=== PATIENT | male | born 2005 | race Caucasian/White ===

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

== ENCOUNTER 2025-02-24 19:46 | Emergency (ER) | payer BC, SELFPAY ==
--- NOTE | ~2025-02-24 | XR_ITS ---
EXAM: XR_[id number]_CR DATE: 02/24/2025 20:03 HISTORY: back pain . COMPARISON: None available. FINDINGS: Craniocervical association and atlantoaxial joint are aligned. No prevertebral soft tissue swelling. Vertebral bodies are aligned. Vertebral body heights are maintained. Normal disc spaces. N ormal facets and posterior elements. IMPRESSION: Unremarkable cervical spine radiograph findings. Reviewed, dictated and finalized at location K.
--- NOTE | ~2025-02-24 | XR_ITS ---
EXAM: XR thoracic spine 3V DATE: 02/24/2025 20:03 HISTORY: back pain . COMPARISON: None available. FINDINGS: Mild scoliosis. Vertebral body alignment intact. Vertebral body heights preserved. No disc space narrowing. No traumatic malalignment or fracture. Visualized lung parenchyma is clear. IMPRESSION: Mild scoliosis. Otherwise unremarkable thoracic spine radiograph findings. Reviewed, dictated and finalized at location K. IMPRESSION: Mild scoliosis. Otherwise unremarkable thoracic spine radiograph [facility].
[2025-02-24 19:46] VITALS: BP 145/84; PULSE 97; RESP 18; TEMP 36.8; O2SAT 99
--- OUTSIDE RECORDS SUMMARY | 2025-02-24 19:48 | XMS_ITS | Clinical Summary ---
Author Organization [facility] [employer] Address [address] [place] [address] Care Team Providers Care Back Wedger Name Role Phone Unavailable Primary Care Provider Unavailabl e Source Comments [facility] [employer],non-owned Affiliates and Associated Physician Practices is amultiple site organization consisting of ambulatory clinics and hospital sitesin [place], [place], [place] and [place]. This disclosure is being madepursuant to the Care Everywhere program and may not contain all information available regarding this patient. 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 Gender Identity Not on file Sexual Orientation Not on file Last Filed Vital Signs Vital Sign Reading Time Taken Comments Blood Pressure 112/70 08/25/2017 6:01 PM OPTICAL GOODS DRILL OPERATOR Pulse 112 08/25/2017 6:01 PM OPTICAL GOODS DRILL OPERATOR Temperature 36.9 C (98.4 F) 08/25/2017 6:01 PM OPTICAL GOODS DRILL OPERATOR Respiratory Rate - - Oxygen Saturation 99% 08/25/2017 6:01 PM OPTICAL GOODS DRILL OPERATOR Inhaled Oxygen Concentration - - Weight 85.3 kg (188 lb) 08/25/2017 6:01 PM OPTICAL GOODS DRILL OPERATOR Height 162.6 cm (5' 4) 08/25/2017 6:01 PM OPTICAL GOODS DRILL OPERATOR Body Mass Index 32.27 08/25/2017 6:01 PM OPTICAL GOODS DRILL OPERATOR Plan of Treatment Health Maintenance Due Date Last Done Comments HIV SCREENING 2019 HPV VACCINE (1 - Male 3-dose series) 2019 MENINGOCOCCAL (Group B) VACC INE SHARED DECISION-MAKING (1 of 2 - Standard) 2020 HEPATITIS C SCREENING 04/21/2022 DTAP/TDAP/TD VACCINES (1 - Tdap) 2023 HEPATITIS B VACCINE (1 of 3 - 19+ 3-dose series) 2023 COVID-19 VACCINE (1 - 2023-2 5 season) 2024 DEPRESSION SCREENING 09/21/2024 INFLUENZA VACCINE (Season Ended) 2025 ZOSTER VACCINE (1 of 2) 2054 HIB VACCINE Aged Out No longer eligi ble based on patient's age to complete this topic MENINGOCOCCAL GROUPS A/C/Y/W VACCINE Aged Out No longer eligible b ased on patient's age to complete this topic PNEUMOCOCCAL VACCINE Aged Out No long er eligible based on patient's age to complete this topic Insurance [facility]
--- NOTE | 2025-02-24 21:47 | PC.NURSE ---
Pt presents to ED c/o worsening R upper back pain. Per pt was lifting boxes at work when it started a couple days ago. no bruising noted. VS WNL
--- OUTSIDE RECORDS SUMMARY | 2025-02-24 22:43 | XMS_ITS | Clinical Summary ---
Author Organization [facility] [employer] Address [address] [place] [address] Care Team Providers Care Lace Cutter Name Role Phone Unavailable Primary Care Provider Unavailabl e Source Comments [facility] [employer],non-owned Affiliates and Associated Physician Practices is amultiple site organization consisting of ambulatory clinics and hospital sitesin [place], [place], [place] and [place]. This disclosure is being madepursuant to the Care Everywhere program and may not contain all information available regarding this patient. Last updated 18.[facility] [employer] Allergies No known active allergies Social History Tobacco Use Types Packs/Day Years Used Date Smoking Tobacco: Passive Smo ke Exposure - Never Smoker Smokeless Tobacco: Never Sex and Gender Information Value Date Recorded Sex Assigned at Not on file Legal Sex Male 5:44 AM MUNICIPAL ENGINEER Gender Identity Not on file Sexual Orientation Not on file Last Filed Vital Signs Vital Sign Reading Time Taken Comments Blood Pressure 112/70 08/25/2017 6:01 PM MUNICIPAL ENGINEER Pulse 112 08/25/2017 6:01 PM MUNICIPAL ENGINEER Temperature 36.9 C (98.4 F) 08/25/2017 6:01 PM MUNICIPAL ENGINEER Respiratory Rate - - Oxygen Saturation 99% 08/25/2017 6:01 PM MUNICIPAL ENGINEER Inhaled Oxygen Concentration - - Weight 85.3 kg (188 lb) 08/25/2017 6:01 PM MUNICIPAL ENGINEER Height 162.6 cm (5' 4) 08/25/2017 6:01 PM MUNICIPAL ENGINEER Body Mass Index 32.27 08/25/2017 6:01 PM MUNICIPAL ENGINEER Plan of Treatment Health Maintenance Due Date [...] patient's age to complete this topic Insurance [facility]
--- NOTE | 2025-02-24 23:57 | ED_ITS ---
HPI - Back Pain/Injury General Chief Complaint: Back Pain/Injury Stated Complaint: medial back pain up into neck Time Seen by Provider: 02/24/25 22:30 History of Present Illness HPI Narrative: 19-year-old male presenting to the emergency department with upper back/scapular pain on the right side posteriorly. He states he was doing heavy lifting at work lifting 50 lb boxes and twisting. He knows that he injured it a week ago and then it got better and then he re-injured it again while at work. Did not fall or have any trauma. Endorses some pain in the thoracic/cervical region but no numbness or tingling or loss of strength or sensation in the arms. No fever, chills, vision changes. Was otherwise in his normal state of health. No chest pain or difficulty breathing. Related Data Home Medications ?Medication ?Instructions ?Recorded ?Confirmed ?Last Taken ?Type ibuprofen 400 mg tablet 400 mg PO TID PRN 10/13/23 10/13/23 Unknown History Allergies Allergy/AdvReac Type Severity Reaction Status Date / Time No Known Allergies Allergy Unknown Verified 10/13/23 13:41 Review of Systems Review of Systems: As reviewed above in HPI [facility] Past Medical History Medical History BMI 35.0-35.9,adult Right knee pain Left knee pain Otitis externa Cerumen impaction Encounter to establish care Surgical History Surgical History History of tonsillectomy and adenoidectomy (~2009) Family History Family History Grandparent Acute myocardial infarction Heart disease Grandparent Hypertension CHF (congestive heart failure) Social History Social History Smoking status: Never smoker Alcohol intake: never Substance use: never Substance use type: does not use Lack of Transportation: No Lack of Food: Never True Current Housing: I Have Housing Concerned About Future Housing: No Difficulty Paying Gas/Electric Bills: No Difficulty Paying for Meds: No Currently Unemployed: No Education: High School Diploma/GED Difficulty w/ Childcare or Family Care: No Living arrangements: with family Occupation/Education: occupation Gender identity (if verbalized by the patient): Male Sexual Orientation (if Verbalized by the Patient): Straight or Heterosexual Spiritual care concerns: No Exam Narrative: GENERAL: [Well-appearing, well-nourished, and in no acute distress.] HEAD: [Normocephalic, atraumatic.] EYES: [PERRLA and EOMI.] ENT: Nares clear, no rhinorrhea or epistaxis. Mucous membranes moist. NECK: Supple. CHEST: [Clear to auscultation. No respiratory distress.] HEART: [Regular rate and rhythm]. No murmur heard. [Normal peripheral pulses.] ABDOMEN: [Soft, nondistended], [nontender], [No rigidity or guarding] EXTREMITIES: Normal range of motion of bilateral upper extremities, reproducible tenderness to palpation over the right-sided scapular area medially. No midline thoracic or cervical spinal tenderness. Negative Spurling's test. Positive Neer's and Pineda testing. SKIN: Warm, dry, no rash. NEURO: [No focal deficits]. Alert and oriented [x3.] PSYCH: [Normal mood and affect.] Course Vital Signs Vital signs: Vital Signs Temperature 36.8 C 02/24/25 19:46 Pulse Rate 97 02/24/25 19:46 Respiratory Rate 18 02/24/25 19:46 Blood Pressure 145/84 H 02/24/25 19:46 Pulse Oximetry 99 02/24/25 19:46 Oxygen Delivery Room Air 02/24/25 19:46 Temperature 36.8 C 02/24/25 19:46 Pulse Rate 97 02/24/25 19:46 Respiratory Rate 18 02/24/25 19:46 Blood Pressure 145/84 H 02/24/25 19:46 Pulse Oximetry 99 02/24/25 19:46 Oxygen Delivery Room Air 02/24/25 19:46 MDM - Back Pain/Injury MDM Narrative Medical decision making narrative: 19-year-old otherwise healthy male presenting to the emergency room with medial upper back pain near the scapular region. States he has been doing heavy lifting at work and twisting and knows that he injured it a week ago and then again yesterday. Has not taken anything for symptoms. No midline trauma or tenderness. No overlying skin changes. No restricted range of motion but does have some pain with certain manipulations such as Neer's and Pineda testing. Good rn labor and delivery strength and distal neuro vasculature is intact. Vital signs show some mild hypertension but likely combination of pain and anxiety. No tachycardia, fever, hypoxia x-rays were obtained and shows no acute osseous abnormalities in the cervical or thoracic spine. Patient likely has muscle spasm/scapular pain and will be treated with low-dose muscle relaxers and anti- inflammatories. Patient will be sent home with prescriptions and return precautions and he was comfortable with this plan and safely discharged. Medical Records Attestation: I reviewed the patient's medical records. Imaging Data Attestation: I personally reviewed and interpreted this imaging study as follows: My impression: Impressions Cervical Spine X-Ray 02/24/25 20:22 IMPRESSION: Unremarkable cervical spine radiograph findings. Thoracic Spine X-Ray 02/24/25 20:23 IMPRESSION: Mild scoliosis. Otherwise unremarkable thoracic spine radiograph findings. Discharge Plan Discharge Clinical Impression: Pain of right scapula, Sprain, subscapularis Patient Disposition: Home Condition: Stable Instructions: Antibiotic Form Additional Instructions: Your x-rays do not show any acute abnormalities. Your symptoms are consistent with a muscle spasm/strain of the subscapularis muscle. We will send you home with anti-inflammatories and muscle relaxers. Return with any emergent concerns otherwise follow-up with regular doctor. Patient Language: Scottish Prescriptions: New ibuprofen 800 mg tablet 800 mg PO TID PRN (Reason: pain) Qty: 15 0RF acetaminophen [Tylenol Extra Strength] 500 mg tablet 1,000 mg PO TID PRN (Reason: pain) Qty: 30 0RF methocarbamol 750 mg tablet 750 mg PO TID PRN (Reason: pain) Qty: 15 0RF No Action ibuprofen 400 mg tablet 400 mg PO TID PRN Follow-up/Referrals: Elaina Kathleen NP [Primary Care Provider] - Time of Disposition: 00:02
[2025-02-25] MEDS: KETOROLAC 10 MG TABLET PO (00:05)
[2025-02-25] MEDS: methocarbamoL 750 MG TABLET PO (00:06)
[2025-02-25 00:15] VITALS: BP 133/85; PULSE 89; RESP 18; TEMP 36.6; O2SAT 100
== END 2025-02-25 00:18 | disposition home or self-care (01) ==
PROVIDERS: Emergency Provider Student in an Organized Health Care Education/Training Program; PCP Nurse Practitioner Family
DX: S43.421A Sprain of right rotator cuff capsule, initial encounter (principal); X50.0XXA Overexertion from strenuous movement or load, initial encounter; X50.3XXA Overexertion from repetitive movements, initial encounter
CPT/HCPCS: 72040; 72072; 99283; A9270

== ENCOUNTER 2025-07-27 12:10 | Outpatient (CLI) | payer BC, SELFPAY ==
[2025-07-27 12:44] LABS: Add Urine Microscopic? NO; Appearance Urine Clear (Clear); Glucose Urine UA Negative (Negative); Leukocyte Esterase Ur Negative LEU/UL (Negative); Nitrate Urine Negative (Negative); Specific Grav Ur 1.031 (1.001-1.035)
[2025-07-27 12:44] LABS: Hematocrit 45.6 % (42.0-52.0); Hemoglobin 14.8 g/dL (14.0-18.0); Immature Granulocyte Percent A 0.3 % (0-0.5); Lymphocytes Absolute Auto 2.80 K/mm3 (0.9-3.2); Mean Corpuscular HGB Conc 32.5 g/dl (32-36); Mean Corpuscular Hemoglobin 28.8 pg (26-34); Mean Corpuscular Volume 88.7 fl (80-100); Nucleated Red Blood Cells Absolute Auto 0.000 K/mm3 (0.0-0.012); Nucleated Red Blood Cells Perc 0.0 % (0.0-0.2); Platelet Count Result 207 k/mm3 (150-375); Red Blood Count 5.14 M/mm3 (4.6-6.20); White Blood Count 7.4 K/mm3 (4.5-10.0)
[2025-07-27 13:05] LABS: Alanine Aminotransferase 20 U/L (6-50); Albumin Level 4.8 g/dL (3.5-5.1); Alkaline Phosphatase 88 U/L (38-126); Anion Gap 11 mmol/L (4-12); Aspartate Amino Transferase 27 U/L (17-59); Bilirubin,Total 0.5 mg/dL (0.2-1.3); Blood Urea Nitrogen 14 mg/dL (9-20); Calcium 9.3 mg/dL (8.4-10.2); Carbon Dioxide 27 mmol/L (22-30); Chloride 100 mmol/L (98-107); Cholesterol 155 mg/dL (0-200); Estimated Glomerular Filt Rate > 60; Glucose 90 mg/dL (65-110); HDL Direct 33 mg/dL; Potassium 4.1 mmol/L (3.4-5.0); Sodium 138 mmol/L (137-145); Total Protein 8.7 g/dL (6.3-8.2); Triglycerides 104 mg/dL (<150)
[2025-07-27 13:46] LABS: Thyroid Stimulating Hormone Reflex 1.170 uIU/mL (0.465-4.68)
[2025-07-27 14:57] LABS: Hemoglobin A1C 5.2 % (<5.7)
--- OUTSIDE RECORDS SUMMARY | 2025-07-27 19:28 | XMS_ITS | Clinical Summary ---
Author Organization [facility] [employer] Address [address] [place] [address] Care Team Providers Care Chief Operator Reformer Name Role Phone Unavailable Primary Care Provider Unavailabl e Source Comments [facility] [employer],non-owned Affiliates and Associated Physician Practices is amultiple site organization consisting of ambulatory clinics and hospital sitesin [place], [place], [place] and [place]. This disclosure is being madepursuant to the Care Everywhere program and may not contain all information available regarding this patient. Last updated 18.[facility] [employer] Allergies No known active allergies Social History Tobacco Use Types Packs/Day Years Used Date Smoking Tobacco: Passive Smo ke Exposure - Never Smoker Smokeless Tobacco: Never Sex and Gender Information Value Date Recorded Sex Assigned at Not on file Legal Sex Male 5:44 AM RN CHILD Gender Identity Not on file Sexual Orientation Not on file Last Filed Vital Signs Vital Sign Reading Time Taken Comments Blood Pressure 112/70 08/25/2017 6:01 PM RN CHILD Pulse 112 08/25/2017 6:01 PM RN CHILD Temperature 36.9 C (98.4 F) 08/25/2017 6:01 PM RN CHILD Respiratory Rate - - Oxygen Saturation 99% 08/25/2017 6:01 PM RN CHILD Inhaled Oxygen Concentration - - Weight 85.3 kg (188 lb) 08/25/2017 6:01 PM RN CHILD Height 162.6 cm (5' 4) 08/25/2017 6:01 PM RN CHILD Body Mass Index 32.27 08/25/2017 6:01 PM RN CHILD Plan of Treatment Health Maintenance Due Date Last Done Comments HIV SCREENING 2019 HPV VACCINE (1 - Male 3-dose series) 2019 MENINGOCOCCAL (Group B) VACC INE SHARED DECISION-MAKING (1 of 2 - Standard) 2020 HEPATITIS C SCREENING 04/21/2022 DTAP/TDAP/TD VACCINES (1 - Tdap) 2023 HEPATITIS B VACCINE (1 of 3 - 19+ 3-dose series) 2023 DEPRESSION SCREENING 09/21/2024 COVID-19 VACCINE (1 - 2023-2 5 season) 2025 INFLUENZA VACCINE (#1) 2025 ZOSTER VACCINE (1 of 2) 2054 HIB VACCINE Aged Out No longer eligi ble based on patient's age to complete this topic MENINGOCOCCAL GROUPS A/C/Y/W VACCINE Aged Out No longer eligible b ased on patient's age to complete this topic PNEUMOCOCCAL VACCINE Aged Out No long er eligible based on patient's age to complete this topic Insurance [facility]
== END 2025-07-27 12:11 | disposition home or self-care (01) ==
LOC: ANHLAB 12:12
PROVIDERS: PCP Nurse Practitioner Family; Visit Provider Nurse Practitioner Family
DX: Z00.00 Encounter for general adult medical examination without abnormal findings (principal); Z13.1 Encounter for screening for diabetes mellitus; Z13.6 Encounter for screening for cardiovascular disorders; Z13.29 Encounter for screening for other suspected endocrine disorder; Z13.0 Encounter for screening for diseases of the blood and blood-forming organs and certain disorders involving the immune mechanism
CPT/HCPCS: 36415; 80053; 80061; 81003; 83036; 84443; 85025